=== PATIENT | male | born 1995 | race Caucasian/White ===

== ENCOUNTER 2016-09-23 21:26 | Emergency (ER) | payer OTHER ==
[~2016-09-23] VITALS: Ht 172.7 cm; Wt 72.4 kg
[2016-09-23 21:30] VITALS: Ht 172.7 cm; Wt 72.4 kg
[2016-09-23] MEDS ORDERED: LORAZEPAM 2 MG/ML 1 ML VIAL IV STA (21:37)
[2016-09-23] MEDS ORDERED: SODIUM CHLORIDE 0.9% 500ML 500 ML IV STA (21:37)
[2016-09-23] MEDS ORDERED: GLUCAGON FOR INJ 1 MG VIAL IV STA (21:37)
[2016-09-23] MEDS ORDERED: NITROGLYCERIN 0.4 MG SL PER TAB CHARGE SL STA (21:37)
--- NOTE | 2016-09-23 22:17 | EMERGENCY ROOM VISIT NOTE ---
History Report prepared by Fely: Heidi Pinedo Under the Supervision of: Dr. Chaz Sarabia M.D. First contact with patient: 21:34 Chief Complaint: FOOD BOLUS Stated Complaint: FOOD STUCK IN THROAT History of Present Illness The patient is a 20 year old male who presents to the Emergency Room with complaints of persistent food stuck in his throat for the past 2 hours. He was eating dinner when a piece of chicken got stuck in his throat. He was eating quickly. He has gotten food stuck in his throat before, but never for this long. He is unable to swallow his saliva. He is not choking. He denies any abdominal pain. He has been unable to vomit. He tried drinking cola which did not help. He is a [employer] student. He denies any other medical problems. Source of History: patient Onset: 2 hours ago Position: throat Quality: other (food stuck) Timing: other (persistent) Associated Symptoms: No abdominal pain, No vomiting Note: Pt reports being unable to swallow his saliva. Pt denies choking. Review of Systems See HPI for pertinent positives & negatives. A total of 10 systems reviewed and were otherwise negative. Past Medical & Surgical Medical Problems: (1) No Known Active Medical Problems Family History Hypertension Social History Smoking Status: Never Smoker Housing Status: lives with roommate Occupation Status: [employer] student Current/Historical Medications No Active Prescriptions or Reported Meds Allergies Coded Allergies: No Known Allergies (Unverified , 09/23/16) Physical Exam Vital Signs Date Time Temp Pulse Resp B/P Pulse Ox O2 Delivery O2 Flow Rate FiO2 09/23/16 23:30 73 19 122/81 95 09/23/16 23:15 72 16 09/23/16 23:00 110/77 09/23/16 22:45 76 21 09/23/16 22:30 110/76 09/23/16 22:15 72 14 98 09/23/16 22:11 100 Room Air 09/23/16 22:10 129/79 09/23/16 22:01 66 09/23/16 21:59 126/78 09/23/16 21:40 99 Room Air 09/23/16 21:30 36.7 58 19 131/82 98 Room Air Physical Exam GENERAL: Patient is in no acute distress. Patient is spitting out his saliva. HEENT: No acute trauma, normocephalic atraumatic, mucous membranes moist, no nasal congestion, no scleral icterus. NECK: No stridor, no adenopathy, no meningismus, trachea is midline. LUNGS: Clear to auscultation bilaterally, no wheeze, no rhonchi, breath sounds equal. HEART: Without murmurs gallops or rubs, regular rate and rhythm. ABDOMEN: Soft, nontender, bowel sounds positive, no hernias, no peritonitis. EXTREMITIES: No cyanosis or edema, full range of motion of all the joints without pain or difficulty, no signs for acute trauma. NEUROLOGIC: Oriented x 3, no acute motor or sensory deficits, no focal weakness. SKIN: No rash, no jaundice, no diaphoresis. Medical Decision & Procedures Medications Administered Medications (Trade) Dose Ordered Sig/Michael Route Start Time Stop Time Status Last Admin Dose Admin Sodium Chloride (Nss 500ml) 500 ml @ 999 mls/hr Q31M STAT IV 09/23/16 21:37 09/23/16 22:07 DC 09/23/16 21:52 999 MLS/HR Lorazepam (Ativan Inj) 1 mg NOW STAT IV 09/23/16 21:37 09/23/16 21:39 DC 09/23/16 21:59 1 MG Glucagon (Glucagon Inj) 2 mg NOW STAT IV 09/23/16 21:37 09/23/16 21:39 DC 09/23/16 21:59 2 MG Nitroglycerin (Nitrostat Tab) 0.4 mg 7 STAT SL 09/23/16 21:37 09/23/16 21:39 DC 09/23/16 21:59 0.4 MG ED Course 2135: The patient was evaluated in room B10. A complete history and physical exam was performed. 2136: Nitroglycerin 0.4 mg SL, Glucagon 2 mg IV, Lorazepam 1 mg IV, NSS 500 ml @ 999 mls/hr IV. 2218: I reevaluated the patient. He feels a little better. He would like to wait before trying to drink anything. 2234: I reevaluated the patient. He was unable to swallow the water. 2237: I discussed the patient's case with Marina Adam. He will come to see the patient. 0: I reevaluated the patient. He is resting comfortably. I updated him on the plan. He verbalized understanding and agreement. Medical Decision Differential diagnosis: esophageal food bolus, esophageal stricture, esophageal narrowing, aspiration. The patient presents with an esophageal food bolus. He cannot swallow his saliva. He was stable, his lungs were clear, he was in no significant distress. The patient received IV glucagon, IV saline, IV Ativan and sublingual nitroglycerin. Despite this medication, he was still spitting his saliva and could not swallow liquids. I spoke to the on-call GI doctor. The patient will be taken to the endoscopy lab for this esophageal obstruction. The patient is aware of the need for the procedure. Consults Time Called: 2230 Consulting Physician: Marina Adam GI Returned Call: [phone] I discussed the patient's case with him. He will come to see the patient. Impression Primary Impression: Esophageal obstruction due to food impaction Scribe Attestation The scribe's documentation has been prepared under my direction and personally reviewed by me in its entirety. I confirm that the note above accurately reflects all work, treatment, procedures, and medical decision making performed by me. Departure Information Dispostion Still a Patient Prescriptions No Active Prescriptions or Reported Meds Referrals No Doctor, Assigned (PCP) Patient Instructions My [facility]
[2016-09-23] MEDS ORDERED: LACTATED RINGER'S 1000ML 1,000 ML IV PRN (23:08)
[2016-09-23] MEDS ORDERED: SUCCINYLCHOLINE CHLORIDE 20 MG/ML 10 ML VIAL IV ONE (23:13)
[2016-09-23] MEDS ORDERED: ONDANSETRON INJ 2 MG/ML 2 ML VIAL ONE (23:13)
[2016-09-23] MEDS ORDERED: LIDOCAINE HCL 2% 2 ML VIAL (20MG/ML) ONE (23:13)
[2016-09-23] MEDS ORDERED: MIDAZOLAM HCL 1 MG/ML 2ML VIAL ONE (23:13)
[2016-09-23] MEDS ORDERED: DEXAMETHASONE SOD INJ 4 MG/ML VIAL ONE (23:13)
[2016-09-23] MEDS ORDERED: PROPOFOL IV EMULSION 10 MG/ML 20 ML VIAL IV ONE (23:13)
[2016-09-23] MEDS ORDERED: FENTANYL CITRATE INJ 50 MCG/1 ML 2 ML VIAL ONE (23:13)
[2016-09-23] MEDS ORDERED: ROCURONIUM BROMIDE 10 MG/ML 5 ML VIAL ONE (23:13)
[2016-09-23] MEDS ORDERED: KETOROLAC TROMETHAMINE 30 MG/ML VIAL IV. PRN (23:15)
[2016-09-23] MEDS ORDERED: METOCLOPRAMIDE HCL INJ 5 MG/ML 2 ML VIAL IV PRN (23:15)
[2016-09-23] MEDS ORDERED: DiphenhydrAMINE HCL 50 MG/ML VIAL IV PRN (23:15)
[2016-09-23] MEDS ORDERED: ONDANSETRON INJ 2 MG/ML 2 ML VIAL IV PRN (23:15)
[2016-09-23] MEDS ORDERED: FENTANYL CITRATE INJ 50 MCG/1 ML 2 ML VIAL IV PRN (23:15)
[2016-09-23 23:30] VITALS: O2SAT 95
--- NOTE | 2016-09-23 23:56 | Endo History and Physical ---
History & Physical Date of Service: September 23, 2016. Chief Complaint: Consult in ER for Food stuck in throat Referring Physician: History of Present Illness Pt states he has episodes of food bolus catching in esophagus about 3 times a year and lasts only max of 20 minutes. He blames it on eating fasting. Tonight at 1930 eating chicken fast and food stuck such cannot handle saliva since.so over 4 hours. No abd or chest pain. No change in bms, No bleeding. NO vomiting. NO GERD. Never had EGD nor colonoscopy. Given nitro, glucagon and lorazepam in ER and no help. Past Medical History negative Past Surgical History Hx Cardiac Surgery: No Hx Internal Defibrillator: No Hx Pacemaker: No Hx Abdominal Surgery: No Hx of Implantable Prosthesis: No Hx Post-Op Nausea and Vomiting: No Hx Cancer Surgery: No Hx Thoracic Surgery: No Hx Orthopedic: No Hx Urinary Tract Surgery: No Family History None HTN Social History Smoking Status: Never Smoker Hx Alcohol Use: No Allergies Coded Allergies: No Known Allergies (Unverified , 09/23/16) Current Medications Reported Home Medications Medications Dose Route/Sig Max Daily Dose Days Date Category No Active Prescriptions or Reported Medications Rx Vital Signs Weight (Kilograms): 72.400 Height (Feet): 5 Height (Inches): 8.00 Date Time Temp Pulse Resp B/P Pulse Ox O2 Delivery O2 Flow Rate FiO2 09/23/16 22:11 100 Room Air 09/23/16 22:10 129/79 09/23/16 22:01 66 09/23/16 21:59 126/78 09/23/16 21:40 99 Room Air 09/23/16 21:30 36.7 58 19 131/82 98 Room Air Review of Systems Respiratory: + cough, + dyspnea at rest, + dyspnea on exertion, + hemoptysis, + problem reported, + sputum, + wheezing, No shortness of breath Cardiovascular: No chest pain Abdomen: No pain 10 review of systems negative Physical Exam General Appearance: WD/WN, no apparent distress Respiratory/Chest: Respiratory effort: no dyspnea Auscultation: breath sounds normal Cardiovascular: Heart Auscultation: RRR, normal S1, normal S2 Abdomen: Bowel Sounds: normal Inspection & Palpation: soft, non-distended, no tenderness, guarding & rebound, no masses Liver: non-tender, no hepatomegaly Constitutional Normal appearing, cooperative eyes--PERRLA, lids normal Ear/NOSE/MOUTH/throat---negataive MS--digits and nails normal Neuro CN intact, Psych, recent and remote memory go Assessment and Plan Dysphagia Food bolus impaction Plan EGD with prn dilatation and food bolus removal. Proc and risks explained which include but not limited to medication reaction, bleeding, perforation, aspiration. Discussed risks of bleeding, perforation and aspiratin more than in EGD without food impacted. However alternative chest surgery not a reasonable option. He is agreeable to EGD.
--- NOTE | 2016-09-24 00:47 | GI REPORT ---
Procedure Date: 09/23/2016 11:48 PM Procedure: Upper GI endoscopy Indications: Foreign body in the esophagus Medicines: General Anesthesia Complications: No immediate complications. Estimated Blood Loss: Estimated blood loss: none. Procedure: Pre-Anesthesia Assessment: - The risks and benefits of the procedure and the sedation options and risks were discussed with the patient. All questions were answered and informed consent was obtained. - Patient identification and proposed procedure were verified prior to the procedure by the physician, the nurse, the anesthesiologist and the lead technician. The procedure was verified in the procedure room. After obtaining informed consent, the endoscope was passed under direct vision. Throughout the procedure, the patient's blood pressure, pulse, and oxygen saturations were monitored continuously. The upper GI endoscopy was accomplished without difficulty. The patient tolerated the procedure well. Procedure and risks explained to patient which include but not limited to medication reaction, bleeding, perforation, aspiration , and missed lesions. Judicious gas insufflation was used and gas removal done on the way out. The lumen was always visualized when advancing the scope. Prep was good. Washes and suctioning used as needed to get good visualization of the mucosa. Retroflexion to look at the fundus and cardia of the stomach and GE junction was done. The scope was introduced through the mouth, mid esophagus. After removing food in esophagus then, advanced to the second part of duodenum. Findings: Food was found in the middle third of the esophagus. Removal of food was accomplished with Saul grasper Estimated blood loss: none. Distal esophagus showed edema and some white coating possibly from food being stuck versus eosinophilic esophagitis. Esophagogastric landmarks were identified: the Z-line was found at 40 cm from the incisors. The stomach was normal. The examined duodenum was normal. Impression: - Food in the middle third of the esophagus. . Removal was successful. Possible distal esophageal inflammation versus eosinophilic esophagitis - Esophagogastric landmarks identified. - Normal stomach. - Normal examined duodenum. Recommendation: - Home when recovered if can find an adult to accompany him versus observation and DC later in the day. Recommend Prilosec OTC daily for 2 weeks. Chew food well and small bites. Repeat EGD as an outpt to look for subtle ring or stricture and biopsy for eosinophilic esophagits. Joe Martinez M.D. Joe Martinez MD 09/24/2016 12:46:58 AM This report has been signed electronically. Note Initiated On: 09/23/2016 11:48 PM I attest to the content of the Intraoperative Record and orders documented therein, exceptions below
--- NOTE | 2016-09-24 00:58 | Progress Note ---
Progress Note Date of Service September 24, 2016. Progress Note Pt no abd or chest pain post procedure. Went over results of procedure, recommendations for EGD and chew food well and small bites.
--- NOTE | 2016-09-24 01:09 | Anesthesiology Progress Note ---
Anesthesia Post Op Note Date & Time September 24, 2016 at 01:08 Vital Signs Pain Intensity: 0 Vital Signs Past 12 Hours Date Time Temp Pulse Resp B/P Pulse Ox O2 Delivery O2 Flow Rate FiO2 09/24/16 00:50 62 16 117/52 100 Mask 10 09/24/16 00:41 36.5 60 16 118/56 99 Mask 10 09/23/16 23:30 73 19 122/81 95 09/23/16 23:15 72 16 09/23/16 23:00 110/77 09/23/16 22:45 76 21 09/23/16 22:30 110/76 09/23/16 22:15 72 14 98 09/23/16 22:11 100 Room Air 09/23/16 22:10 129/79 09/23/16 22:01 66 09/23/16 21:59 126/78 09/23/16 21:40 99 Room Air 09/23/16 21:30 36.7 58 19 131/82 98 Room Air Notes Mental Status: alert / awake / arousable, participated in evaluation Pt Amnestic to Procedure: Yes Nausea / Vomiting: adequately controlled Pain: adequately controlled Airway Patency, RR, SpO2: stable & adequate BP & HR: stable & adequate Hydration State: stable & adequate Anesthetic Complications: no major complications apparent Pt had EGD for food bolus. GA w/ RSI. Uneventful. He's doing well.
[2016-09-24 01:21] VITALS: BP 124/60; PULSE 64; TEMP 36.4; O2SAT 97
[2016-09-24 02:00] VITALS: BP 122/69; PULSE 65; TEMP 36.4; O2SAT 96
== END 2016-09-23 23:54 | disposition still patient (30) ==
LOC: C.EDB 21:28
DX: T18.128A Food in esophagus causing other injury, initial encounter (principal); X58.XXXA Exposure to other specified factors, initial encounter; Z82.49 Family history of ischemic heart disease and other diseases of the circulatory system